=== PATIENT | female | born 1975 | race Caucasian/White ===

== ENCOUNTER → 2018-01-10 12:18 | Outpatient (CLI) | payer BC, SELFPAY ==
--- NOTE | 2018-01-10 12:23 | RAD_ITS ---
STUDY: X-RAY - RIGHT FOOT CLINICAL: Female, 42 years old. Right-sided heel pain. TECHNIQUE: 3 view(s) of the foot. COMPARISON: Prior comparison studies are not available for review at this time. FINDINGS: There is a small plantar calcaneal spur. The tarsal bones have a grossly normal appearance otherwise. Intertarsal articulations are within normal limits. Normal metatarsi. Normal metatarsophalangeal joint of the great toe. Normal tibial and fibular sesamoid bones. Normal interphalangeal joint of the great toe. Normal phalanges of the great toe. Normal second through fifth metatarsophalangeal joints. Normal interphalangeal joints and phalanges of the lesser toes. There is soft tissue swelling. There is no demonstrated fracture. RAD/Foot min 3 Views IMPRESSION: 1. Small calcaneal spur and mild soft tissue swelling. 2. If there is still clinical concern for acute fracture, follow-up radiographs in 7-10 days maybe helpful in evaluating a healing radiographically occult fracture. Electronically Signed: Alondra Hogan MD at 4:52 EDT , Service support ,
== END ==
LOC: PR 12:21 → RAD 05-03 09:41
PROVIDERS: Family Provider Internal Medicine; PCP Internal Medicine; Visit Provider Nurse Practitioner Gerontology
DX: M79.671 Pain in right foot (principal)
CPT/HCPCS: 73630

== ENCOUNTER → 2019-10-16 12:33 | Outpatient (CLI) | payer OTHER, SELFPAY ==
--- NOTE | 2019-10-16 12:41 | CDU_ITS ---
Reason For Study: SLURRED SPEECH Rt. Velocities/BP Lt. Velocities/BP Prox CCA 97/28 cm/sec. Prox CCA 83/28 cm/sec. Mid CCA 76/25 cm/sec. Mid CCA 77/25 cm/sec. Dist CCA 67/25 cm/sec. Dist CCA 73/24 cm/sec. Prox ICA 89/45 cm/sec. Prox ICA 74/32 cm/sec. Mid ICA 87/36 cm/sec. Mid ICA 105/50 cm/sec. Dist ICA 88/46 cm/sec. Dist ICA 71/29 cm/sec. Rt. ICA/CCA = .9. Lt. ICA/CCA = 1.3. Prox ECA 94/19 cm/sec. Prox ECA 95/20 cm/sec. Rt. Vert. 41/15 cm/sec. Lt. Vert. 39/17 cm/sec. Right Extracranial There is intimal thickening but no significant atherosclerotic plaque noted in the right common carotid artery. There is intimal thickening but no significant atherosclerotic plaque noted in the right internal carotid artery. There is intimal thickening but no significant atherosclerotic plaque noted in the right external carotid artery. Antegrade flow is noted in the right vertebral artery. There is intimal thickening but no significant atherosclerotic plaque noted in the right bulb. Left Extracranial There is intimal thickening but no significant atherosclerotic plaque noted in the left common carotid artery. There is homogeneous, irregular atherosclerotic plaque noted in the left internal carotid artery. There is intimal thickening but no significant atherosclerotic plaque noted in the left external carotid artery. Antegrade flow is noted in the left vertebral artery. There is homogeneous, smooth atherosclerotic plaque noted in the left bulb. Procedure Carotid Duplex [id number]. Exam performed in department. Interpretation Summary No significant atherosclerotic plaque or stenosis noted in the right internal carotid artery. Mild (<50%) stenosis left extracranial internal carotid. Flow within the vertebral arteries is antegrade bilaterally. Ordering Physician: Kierra Schwarz Referring Physician: Kierra Schwarz Performed By: Sera Crespo, DASHA, RVT
--- NOTE | 2019-10-16 12:41 | ECHOD_ITS ---
Reason For Study: Slurred Speech Procedure This was a 2D Doppler, Color Flow transthoracic echocardiogram. Contrast injection was performed. Exam performed in department. Left Ventricle Normal LV size. Left ventricular systolic function is normal. The estimated ejection fraction is 60 %. Normal diastology for age. No regional wall motion abnormalities noted. Right Ventricle Normal RV size. Normal systolic function. Atria Normal left atrium. Normal right atrium. Bubble contrast study negative for right to left interatrial shunt. Mitral Valve Normal mitral valve. Trivial eccentric mitral valve insufficiency. Tricuspid Valve Normal tricuspid valve. Mild (1+) tricuspid valve insufficiency. Pulmonary artery systolic pressure is 22 mmHg. Aortic Valve Normal aortic valve. Trisinus/trileaflet aortic valve. Pulmonic Valve Normal pulmonic valve. Great Vessels Normal aortic root. The pulmonary artery is normal size. Normal inferior vena cava. Pericardium/Pleural No pericardial effusion. Medication 22 gauge I.V. with prn adaptor inserted into right arm. Performed a rapid injection of agitated mix of 9 cc saline and 1cc air to assess for atrial septal defect. MMode/2D Measurements & Calculations LVIDd: 4.1 cm IVSd: 0.86 cm LA dimension: 3.0 cm LVIDs: 2.4 cm LVPWd: 0.80 cm RVDd: 3.1 cm FS: 39.6 % LAV(MOD-bp): 31.6 ml LA A4 area: 14.2 cm2 RA A4 area: 11.4 cm2 LAV(MOD-bp) Indexed: 18.2 ml/m2 LAV(MOD-sp2): 28.7 ml LAV(MOD-sp4): 33.1 ml Time Measurements MV dec time: 0.21 sec Doppler Measurements & Calculations MV E max lela: 117.4 cm/sec MV V2 max: 133.9 cm/sec MV P1/2t max lela: 132.9 cm/sec MV A max lela: 94.4 cm/sec MV max P.2 mmHg MV P1/2t: 113.9 msec MV E/A: 1.2 MV V2 mean: 69.6 cm/sec MV dec slope: 341.7 cm/sec2 MV mean P.4 mmHg MV V2 VTI: 41.3 cm MVA(P1/2t): 1.9 cm2 Ao V2 max: 144.5 cm/sec LV V1 max: 108.4 cm/sec PA V2 max: 97.3 cm/sec Ao max P.3 mmHg LV V1 max P.7 mmHg TR max lela: 218.0 cm/sec TR max P.0 mmHg Interpretation Summary Normal LV size. Left ventricular systolic function is normal. The estimated ejection fraction is 60 %. Normal diastology for age. Mild (1+) tricuspid valve insufficiency. Ordering Physician: Kierra Schwarz Referring Physician: Kierra Schwarz Performed By: Sky Schrader RCS
== END ==
PROVIDERS: PCP Internal Medicine; Referring Provider Internal Medicine; Visit Provider Internal Medicine
DX: R47.81 Slurred speech (principal)
CPT/HCPCS: 93306; 93880; A4216